=== PATIENT | male | born 1990 | race Caucasian/White ===

== ENCOUNTER 2020-04-13 14:26 | Emergency (ER) | payer OTHER, SELFPAY ==
[2020-04-13] VITALS (9 sets, daily range): BP systolic 123–140; BP diastolic 62–78; PULSE 70–91; RESP 14–18; TEMP 36.4; O2SAT 99–100
--- NOTE | ~2020-04-13 | XR_ITS ---
EXAMINATION: XR chest 2V DATE: 04/13/2020 16:43 INDICATION: Fever and leukocytosis TECHNIQUE: PA and lateral views of the chest are obtained. COMPARISON: None available FINDINGS: There are minimal airspace opacities of the lung bases. There is no pleural effusion or pne umothorax. The cardiomediastinal silhouette is normal. The visualized bones and soft tissues are unre markable. IMPRESSION: 1. Mild bibasilar airspace opacity, consistent with atelectasis versus pneumonia. Reviewed, dictated and finalized at location A. IMPRESSION: 1. Mild bibasilar airspace opacity, consistent with atelectasis versus pneumoni a.
[2020-04-13 15:24] LABS: Basophils Percent Auto 0.2 % (0.2-1.2); Eosinophils Absolute Auto 0.1 K/mm3 (0-0.3); Eosinophils Percent Auto 0.7 % (0-4.4); Hematocrit 47.4 % (42.0-52.0); Immature Granulocyte Absolute 0.11 K/mm3 (0.00-0.031); Immature Granulocyte Percent A 0.7 % (0-0.5); Lymphocytes Absolute Auto 1.44 K/mm3 (0.9-3.2); Lymphocytes Percent Auto 9.2 % (18.3-44.2); Mean Corpuscular HGB Conc 33.8 g/dl (32-36); Mean Corpuscular Hemoglobin 29.8 pg (26-34); Mean Corpuscular Volume 88.3 fl (80-100); Mean Platelet Volume 10.1 fl (7.4-10.4); Monocytes Absolute Auto 1.2 K/mm3 (0.1-0.6); Monocytes Percent Auto 7.4 % (2.6-8.5); Neutrophils Absolute Auto 12.8 K/mm3 (1.3-6.7); Neutrophils Percent Auto 81.8 % (45.5-73.1); Platelet Count Result 175 k/mm3 (150-375); Red Blood Count 5.37 M/mm3 (4.6-6.20); Red Cell Distribution Width 12.3 % (11.5-14.5); White Blood Count 15.7 K/mm3 (4.5-10.0)
[2020-04-13 15:34] LABS: Lactic Acid Reflex 1.6 mmol/L (0.7-2.1)
[2020-04-13 15:35] LABS: Alanine Aminotransferase 24 U/L (4-50); Albumin Level 4.9 g/dL (3.5-5.1); Alkaline Phosphatase 57 U/L (38-126); Anion Gap 13 mmol/L (8-16); Aspartate Amino Transferase 24 U/L (17-59); Bilirubin,Total 1.1 mg/dL (0.2-1.3); Blood Urea Nitrogen 12 mg/dL (9-20); Calcium 9.8 mg/dL (8.4-10.2); Carbon Dioxide 32 mmol/L (22-30); Chloride 93 mmol/L (98-107); Estimated CRCL calculation 103 ml/min; Estimated Glomerular Filt Rate > 60; Glucose 111 mg/dL (75-110); Lipase 32 U/L (23-300); Potassium 3.6 mmol/L (3.4-5.0); Sodium 138 mmol/L (137-145)
[2020-04-13 15:37] LABS: INR 1.2; Prothrombin Time 15.3 Seconds (11.1-14.7)
[2020-04-13 15:38] LABS: Partial Thromboplastin Time 34.9 SECONDS (22.3-36.8)
[2020-04-13 16:03] LABS: Add Urine Microscopic? YES; Appearance Urine Cloudy (Clear); Bacteria Urine Trace /hpf; Bilirubin Urine Negative (Negative); Blood Urine 1+ (Negative); Color Urine Yellow (Yellow); Glucose Urine UA Negative (Negative); Ketones Urine Trace mg/dL (Negative); Leukocyte Esterase Ur 3+ LEU/UL (Negative); Mucus Urine Heavy /lpf; Nitrate Urine Negative (Negative); Protein Urine 2+ mg/dL (Negative); Specific Grav Ur 1.019 (1.001-1.035); Squamous Epithelial Cell Urine Rare /hpf (Few); WBC Urine >75 /hpf
--- NOTE | 2020-04-13 16:12 | ED.FEVER ---
HPI - Fever General Chief Complaint: Fever <Amado Jacques PA-C - Last Filed: 04/13/20 17:03> Stated Complaint: fever, painful urination, sent from urgent care <NEVA Burnett Last Filed: 04/13/20 17:03> Time Seen by Provider: 04/13/20 15:41 <Amado Jacques PA-C - Last Filed: 04/13/20 17:03> Source: patient and family <Amado Jacques PA-C - Last Filed: 04/13/20 17:03> Mode of arrival: ambulatory <NEVA Burnett Last Filed: 04/13/20 17:03> Limitations: no limitations <NEVA Burnett Last Filed: 04/13/20 17:03> History of Present Illness HPI Narrative: Patient is a 29-year-old male who presents to emergency department for evaluation of urinary symptoms with burning with urination suprapubic discomfort and fever consistent with prior urinary tract infections patient presents with his mother in no distress resting comfortably in the room does not appear to be uncomfortable patient has not taken anything for his symptoms presents for private vehicle from urgent care in no distress <Amado Jacques PA-C - Last Filed: 04/13/20 17:03> Related Data Allergies/Adverse Reactions: Allergies Allergy/AdvReac Type Severity Reaction Status Date / Time No Known Allergies Allergy Verified 04/13/20 15:49 <Amado Jacques PA-C - Last Filed: 04/13/20 17:03> Review of Systems Review of Systems: All systems reviewed & are unremarkable except as noted in HPI and below <Amado Jacques PA-C - Last Filed: 04/13/20 17:03> PMFSH Social History Social History: Social History (Updated 04/13/20 @ 16:15 by Amado Jacques PA-C) Smoking status: Never smoker Gender identity (if verbalized by the patient): Male <NEVA Burnett Last Filed: 04/13/20 17:03> Exam Narrative: Exam Narrative: GENERAL: Well-appearing, well-nourished, and in no acute distress. HEAD: Normocephalic, atraumatic. EYES: PERRLA and EOMI. ENT: Nares clear, no rhinorrhea or epistaxis. Mucous membranes moist. CHEST: Clear to auscultation. No respiratory distress. No wheezes rales or rhonchi HEART: Regular rate and rhythm. No murmur heard. Normal peripheral pulses. ABDOMEN: Soft, nontender, nondistended EXTREMITIES: Normal range of motion. No edema. SKIN: Warm, dry, no rash. NEURO: No focal deficits. Alert and oriented x3. PSYCH: Normal mood and affect. 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 Patient found to have urinary tract infection was hydrated and given IV antibiotics in the emergency department and advised to follow with primary care and urology patient is afebrile nontoxic-appearing no distress without emesis felt appropriate for outpatient reevaluation <NEVA Burnett Last Filed: 04/13/20 17:03> Consultations Consultation #1: Attempted to call patient's primary care doctor but the patient has not yet seen his primary care doctor <NEVA Burnett Filed: 04/13/20 17:03> Date: 04/13/20 <NEVA Burnett Last Filed: 04/13/20 17:03> Time: 16:55 <NEVA Burnett Last Filed: 04/13/20 17:03> Vital Signs Vital signs: Vital Signs Temperature 36.4 C 04/13/20 15:06 Pulse Rate 85 04/13/20 15:06 Respiratory Rate 14 04/13/20 15:06 Blood Pressure 127/78 04/13/20 15:06 Pulse Oximetry 100 04/13/20 15:06 Temperature 36.4 C 04/13/20 15:06 Pulse Rate 70 04/13/20 16:54 Respiratory Rate 18 04/13/20 16:54 Blood Pressure 140/62 04/13/20 16:54 Pulse Oximetry 100 04/13/20 16:54 <NEVA Burnett Filed: 04/13/20 17:03> Vital Signs Temperature 36.4 C 04/13/20 15:06 Pulse Rate 85 04/13/20 15:06 Respiratory Rate 14 04/13/20 15:06 Blood Pressure 127/78 04/13/20 15:06 Pulse Oximetry 100 04/13/20 15:06 Temperature 36.4 C 04/13/20 15:06 Pulse Rate 70 04/13/20 16:54 Respira
== END 2020-04-13 18:01 | disposition home or self-care (01) ==
PROVIDERS: Emergency Medicine; Emergency Medicine Emergency Medical Services; Emergency Provider Emergency Medicine; PCP Family Medicine
DX: N39.0 Urinary tract infection, site not specified (principal)
CPT/HCPCS: 36415; 71046; 80053; 81001; 83605; 83690; 85025; 85610; 85730; 87077; 87086; 87088; 87186; 87491; 87591; 96365; 99284; J0696